=== PATIENT | female | born 1955 | race Caucasian/White ===

== ENCOUNTER 2017-03-05 14:12 | Observation (INO) | payer OTHER ==
--- NOTE | ~2017-03-05 | CR20 ---
[facility] A Service of [facility] & [facility] RADIOLOGY TEXT RESULTS PATIENT: JUDY MIRANDA LOCATION: [facility] 449-01 : 57 UNIT #: [id number] AGE: [address]: Mahamed Spicer MD SEX: F ORDER DR: [id number] [facility] [address] [facility]. [place], [place] [address] [id number] MR#: [id number] Acc #: [id number] NAME: UJDY MIRANDA : 1955 SEX: F STUDY DATE/TIME: 03/05/2017 14:33 UNIT: [facility] ROOM: STUDY DESCRIPTION: CR Ankle Min 3 Views Lt Attending Physician: Odessa Hardwick M.D. Ordering Physician: Odessa Hardwick M.D. Primary Care Physician: No Primary Care Physician MEDICAL IMAGING REPORT This report is preliminary unless electronic signature is present EXAM Left ankle 3 views HISTORY Pain after fall; missed step. FINDINGS There is a comminuted oblique distal fibular fracture extending to the plafond and a mildly to moderately displaced medial malleolar fracture with widening of the mortise medially. There is probably a posterior malleolar fracture, as well. Dictated by... Bashir Mcclain M.D. THIS IS AN ELECTRONICALLY VERIFIED REPORT Bashir Mcclain M.D. at 03/06/2017 3:53 PM TEV/amelie TD: 03/05/2017 16:12 JOB #: [id number] MEDICAL IMAGING REPORT Page 1 of 1 COPY
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
--- NOTE | ~2017-03-05 | OR ---
Unit #: [id number] #: [id number] Patient: NATI MIRANDA [id number] [address] [place], [place] [address] [id number] I MR#: [id number] NAME: NATI MIRANDA ROOM: [facility] Date of Procedure: 03/06/2017 Admission Date: 03/05/2017 Surgeon: Damon Cho M.D. : 1955 Attending Physician: Mahamed Spicer M.D. Primary Care Physician: Primary Care Physician No OPERATIVE REPORT PREOPERATIVE DIAGNOSIS Left trimalleolar ankle fracture. POSTOPERATIVE DIAGNOSIS Left trimalleolar ankle fracture. PROCEDURE PERFORMED Open reduction internal fixation, left trimalleolar ankle fracture. SITE DAMAGE PREVENTION TECHNICIAN Domingo Vizcarra CFA. ANESTHESIA General with LMA. COMPLICATIONS None. SPECIMENS None. DRAINS None. SURGICAL IMPLANTS 1. Yovana 6-hole distal fibular locking plate. 2. Yovana two 4.0 mm cannulated partially threaded screws. INDICATION FOR PROCEDURE Nati is a pleasant 61-year-old female who had twisted her left ankle after missing a step resulting in a trimalleolar ankle fracture. She was brought to the emergency room, where x-rays were taken. She was placed into a splint and admitted to Orthopedics. It was felt that she would benefit from ORIF of the fracture. She elected to proceed with surgery. Risks, benefits, and alternatives discussed. Risks include, but are not limited to, infection, bleeding, nerve injury, blood clots, risks associated with anesthesia, need for further surgery, and possibly . DESCRIPTION OF PROCEDURE On 03/06/2017, the patient was seen in preoperative holding area where her surgical site was marked. Preoperative antibiotics were received. H and P and consent updated. Preoperative block had been performed. She was Unit #: [id number] #: [id number] Patient: NATI MIRANDA taken to the operating room and provided general anesthesia. The left lower extremity was prepped and draped in typical sterile fashion. Time-out performed confirming the correct surgical site and procedure. At this point, Esmarch was used to exsanguinate the leg and tourniquet inflated to 250 mmHg. Lateral incision was then made directly over the fibula. Incision was taken down through the skin and subcutaneous tissues. There was significant comminution of the fracture. It was segmental. The fragments were reduced and a 2.7 mm screw was placed from anterior to posterior using lag technique. A neutralizing 6-hole plate was placed. It was secured distally followed by 3 proximal screws, two of which were bicortical and the other was a locking screw. Once this was complete, focus was placed on the medial malleolus. Incision was made over the medial malleolus. Fracture site identified. Periosteum was folded into the fracture site and excised. Wound was thoroughly irrigated including the fracture site. The medial malleolus was then reduced with 2 K-wires. It was measured, reamed over, followed by placement of two-third threaded cannulated screws. This had excellent fixation and compression across the fracture. The focus was placed back on the lateral malleolus. There had been interval shifting of the fracture site. The plate was taken back off and the lag screw was converted to a larger bicortical screw to hold the fixation. The plate was bent and slightly adjusted and replaced back on the tibia to neutralize the fracture. The fracture was well reduced at this point and distal locking screws were placed followed by 4 screws bicortically proximally. At this point, final AP, oblique, lateral view images were taken confirming appropriate reduction of fracture and placement of hardware. Negative external rotation stress test noted. Tourniquet released at just over an hour. Wounds were thoroughly irrigated. Hemostasis was achieved. Deep tissue closed with 0 Vicryl suture followed by 2-0 Vicryl for subcutaneous tissues and darek for skin. Xeroform, 4x4s, ABD pad, cast padding, and a well-padded posterior splint were placed. The patient was subsequently awakened from general anesthesia in stable condition and taken to PACU postoperatively. POSTOPERATIVE PLAN The patient will be returned to her hospital room. She will be on nonweightbearing physical therapy. She will have Lovenox while in the hospital be transpositioned to aspirin full dose for 2 weeks for DVT prophylaxis. No complications encountered during the surgical procedure. Dictated by... Damon Cho M.D. SNEHA/bell TD: 03/07/2017 13:07 JOB #: [id number] OPERATIVE REPORT Page 1 of 1 X X PROCEDURE OPERATIVE NOTE
--- NOTE | ~2017-03-05 | CR17 ---
[facility] A Service of [facility] & [facility] RADIOLOGY TEXT RESULTS PATIENT: JUDY MIRANDA LOCATION: [facility] 449-01 : 56 UNIT #: [id number] AGE: [address]: Mahamed Spicer MD SEX: F ORDER DR: [id number] [facility] [address] [facility]. [place], [place] [address] [id number] I MR#: [id number] Acc #: [id number] NAME: JUDY MIRANDA : 1955 SEX: F STUDY DATE/TIME: 03/06/2017 13:02 UNIT: [facility] ROOM: [facility] STUDY DESCRIPTION: CR Ankle 2 Views Lt Attending Physician: Mahamed Spicer M.D. Ordering Physician: Damon Cho M.D. Primary Care Physician: No Primary Care Physician MEDICAL IMAGING REPORT This report is preliminary unless electronic signature is present EXAM Left ankle series. HISTORY Open reduction internal fixation, left ankle. FINDINGS Fluoroscopy time 19 seconds. 5 fluoroscopic spot images. 5 fluoroscopic spot images of the left ankle are presented. Images demonstrate patient undergoing open reduction internal fixation of left lateral and medial malleolar fractures. Please see operative report for full procedural details. Dictated by... Domingo Padron M.D. THIS IS AN ELECTRONICALLY VERIFIED REPORT Domingo Padron M.D. at 03/11/2017 10:59 AM MOHINDER/kayla TD: 03/06/2017 16:51 JOB #: [id number] MEDICAL IMAGING REPORT Page 1 of 1 COPY
--- NOTE | ~2017-03-05 | EKG ---
PATIENT: JUDY MIRANDA UNIT #: [id number] Ventricular Rate: 83 BPM Atrial Rate: 83 BPM P-R Interval: 160 ms QRS Duration: 74 ms Q-T Interval: 398 ms QTC Calculation(Bezet): 467 ms P [place]: 61 degrees Calculated R [place]: -21 degrees Calculated T [place]: 11 degrees Diagnosis Line: Normal sinus rhythm Diagnosis Line: Voltage criteria for left ventricular hypertrophy Diagnosis Line: Nonspecific ST abnormality Diagnosis Line: Abnormal ECG Diagnosis Line: No previous ECGs available Diagnosis Line: Confirmed by PROSPER OSEGUERA MD ([id number]) on 03/05/2017 Diagnosis Line: 10:47:17 PM INTERPRETING MD: ANA ROSA CARNES
--- NOTE | ~2017-03-05 | CR72 ---
[facility] A Service of [facility] & [facility] RADIOLOGY TEXT RESULTS PATIENT: JUDY MIRANDA LOCATION: [place] [address]- : [birth year] UNIT #: [id number] AGE: [address]: Mahamed Spicer MD SEX: F ORDER DR: [id number] [facility] [address] [facility] [place], [place] [address] [id number] I MR#: [id number] #: [id number] NAME: JUDY MIRANDA : 1955 SEX: F STUDY DATE/TIME: 03/05/2017 16:18 UNIT: [facility] ROOM: [facility] STUDY DESCRIPTION: CR Chest Single View Portable Attending Physician: Mahamed Spicer M.D. Ordering Physician: Mahamed Spicer M.D. Primary Care Physician: Primary Care Physician No MEDICAL IMAGING REPORT This report is preliminary unless electronic signature is present EXAM Portable chest HISTORY Fall down steps 03/05/2017, with shortness of air with activity. COMPARISON 03/05/2017 FINDINGS A portable view of the chest was obtained. The heart size and vascularity are normal and the lungs are clear. There is a sternotomy wire present and there is a metal plate in the lower cervical spine. IMPRESSION No active disease. Dictated by... Luís Aguilar M.D. THIS IS AN ELECTRONICALLY VERIFIED REPORT Luís Aguilar M.D. at 03/06/2017 7:18 AM FEL/to TD: 03/05/2017 19:00 JOB #: [id number] MEDICAL IMAGING REPORT Page 1 of 1 COPY
--- NOTE | ~2017-03-05 | DS ---
Unit #: [id number] #: [id number] Patient: JUDY MIRANDA [id number] [address] [address] [id number] I MR#: [id number] NAME: JUDY MIRANDA ROOM: [facility] Age: 61 Sex: F Admission Date: 03/05/2017 : 1955 Discharge Date: 03/07/2017 Attending Physician: Mahamed Spicer M.D. Primary Care Physician: Shruthi Primary Care Physician DISCHARGE SUMMARY DISCHARGE DIAGNOSES Left ankle trimalleolar fracture, status post ORIF. DISCHARGE MEDICATIONS 1. The patient will restart all of her home medications. 2. She will switch aspirin 81 mg to aspirin 325 mg p.o. daily times 2 weeks. 3. She will also be discharged on pain medication, [place] 10/325 mg 1-2 tablets p.o. q.4 h. p.r.n. pain. HOSPITAL COURSE The patient was admitted on 03/05/2017 with a left ankle injury. She was taken to surgery on 03/06/2017. She did well postoperatively. Labs and vital signs are stable on postoperative day one and she is felt to be stable for discharge home. DISPOSITION Home. DISCHARGE INSTRUCTIONS 1. The patient is nonweightbearing on her left lower extremity. 2. She will keep the splint clean and dry. 3. She will ice and elevate. 4. She will follow up in the office in two weeks. 5. She will take aspirin 325 mg p.o. daily for 2 weeks for DVT prophylaxis. Dictated by... Damon Cho M.D. SNEHA/chel TD: 03/07/2017 08:42 JOB #: [id number] Unit #: [id number] #: [id number] Patient: JUDY MIRANDA DISCHARGE SUMMARY Page 1 of 1 X X DISCHARGE SUMMARY
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
--- NOTE | ~2017-03-05 | HP ---
Unit #: [id number] #: [id number] Patient: JUDY MIRANDA [id number] [address] [place], [place] [address] [id number] MR#: [id number] NAME: JUDY MIRANDA ROOM: Age: 61 Sex: F Admission Date: 03/05/2017 : 1955 Attending Physician: Odessa Hardwick M.D. HISTORY AND PHYSICAL ADMITTING DIAGNOSIS Left ankle fracture. HISTORY OF PRESENT ILLNESS Miss Miranda is a 61-year-old female who fell after missing a step near [facility]. She went to the watch store to replace a watch battery, missed a step, and landed on the left lower extremity. She rolled her left ankle. She admits to pain and swelling of the left ankle. The pain is localized to the medial and lateral malleolus. She denies any numbness or tingling. She is unable to weight bear at this time. PAST MEDICAL HISTORY 1. Diabetes. 2. Hypertension. 3. Gastroesophageal reflux disease. 4. Hyperlipidemia. 5. Allergic rhinitis. PAST SURGICAL HISTORY 1. Hysterectomy. 2. Cervical spine surgery. 3. Bladder surgery. ALLERGIES Feldene. SOCIAL HISTORY Patient denies any smoking, alcohol, or illicit drug use. She lives at home with her . FAMILY HISTORY Ins[employer]icant. REVIEW OF SYSTEMS Ten organ systems were reviewed. Patient denies any blurry vision, congestion, sore throat, shortness of breath, chest pain, abdominal pain, urinary incontinence, numbness, tingling, skin ulcers or lesions, anxiety, or depression. Positive for joint pain. PHYSICAL EXAMINATION GENERAL: No acute distress, alert and oriented x3. VITAL SIGNS: Temperature 98.2, pulse 95, respirations 17, and blood pressure 161/70. HEENT: PERRLA. Nonicteric sclerae. Unit #: [id number] #: [id number] Patient: JUDY MIRANDA THORAX: Trachea midline. No thyromegaly. CARDIAC: S1 and S2. No extra sounds. No murmurs. LUNGS: Clear to auscultation. No rales or rhonchi. ABDOMEN: Nondistended, nontender. Positive bowel sounds. GENITOURINARY: Deferred. MUSCULOSKELETAL: No erythema or ecchymosis. Positive edema. She has 2+ dorsalis pedis bilateral pulses. NEUROLOGIC: Cranial nerves II-XII intact. SKIN: Cool and dry. PSYCHIATRIC: Good insight, good judgment. Mood and affect are pleasant. DIAGNOSTIC STUDIES IMAGING: Two views of the left ankle ordered and reviewed in the emergency room and shows a bimalleolar left ankle fracture with mortise displacement. ASSESSMENT Left ankle fracture. PLAN I have discussed the treatment options with the patient. I have recommended a left ankle ORIF to be done by Dr. Cho tomorrow pending medical clearance. The risks and benefits of the procedure were explained, as well as a description of the procedure in its entirety along with any complications. The patient has decided to proceed. Will go ahead and get this scheduled, get the usual preoperative lab work and testing complete, and have the patient medically cleared for surgery. We will have [facility] see the patient for medical clearance and diabetic management. They will also review her admitting med rec. Patient will likely be discharged on Friday pending pain control and physical therapy. Dictated by Eliud SanfordALalo for Brenda Horton/shalonda TD: 03/05/2017 16:15 JOB #: [id number] HISTORY AND PHYSICAL Page 1 of 1 X Mansi Brunson HISTORY AND PHYSICAL
[2017-03-05] MEDS ORDERED: ASPIRIN81 MG PO (15:22)
[2017-03-05] MEDS ORDERED: ACIPHEX20 MG PO (15:22)
[2017-03-05] MEDS ORDERED: LANTUS100 U/ML (15:22)
[2017-03-05] MEDS ORDERED: CALCIUM 500 +1 EAC6 PO (15:23)
[2017-03-05] MEDS ORDERED: JANUVIA100 MG PO (15:23)
[2017-03-05] MEDS ORDERED: LIPITOR PO (15:24)
[2017-03-05] MEDS ORDERED: HYDROCHLOROTHIA25 MG PO (15:24)
[2017-03-05] MEDS ORDERED: ZYRTEC PO (15:24)
[2017-03-05 15:40] LABS: BASOPHIL# 0.1 X10e3 (0-0.3); BASOPHIL% 0.6 % (0-2.5); EOSINOPHIL# 0.2 X10e3 (0-0.7); EOSINOPHIL% 1.4 % (0.0-7.0); HEMATOCRIT 37.3 % (35.0-45.0); HEMOGLOBIN 11.7 gm/dL (12.0-16.0); LYMPHOCYTE# 1.5 X10e3 (1.0-3.5); LYMPHOCYTE% 10.6 % (17.0-45.0); MEAN CORPUSCULAR HEMOGLOBIN 25.2 PG (28-34); MEAN CORPUSCULAR HGB CONC 31.5 g/dL (30-36); MEAN PLATELET VOLUME 8.5 FL (6.5-11.5); MONOCYTE# 0.9 X10e3 (0-1.0); MONOCYTE% 6.6 % (3.0-12.0); NEUTROPHIL# 11.3 X10e3 (1.5-7.1); NEUTROPHIL% 80.8 % (40-75); PLATELET COUNT 403 X10e3 (140-420); RED BLOOD COUNT 4.67 X10e (3.90-5.30); RED CELL DISTRIBUTION WIDTH 15.3 % (11.0-15.5)
[2017-03-05 15:43] LABS: DIFF IND NO
[2017-03-05 15:55] LABS: PROTHROMBIN TIME (PATIENT) 10.5 SECONDS (9.6-11.5)
[2017-03-05 16:02] LABS: BUN/CREATININE RATIO 10.9; CALCIUM SERUM 9.5 mg/dL (8.4-10.2); CREATININE SERUM 1.1 mg/dL (0.6-1.4); GLOM FILT RATE Estimated 54.5 mL/min (>60); POTASSIUM 3.2 mmol/L (3.5-5.1)
[2017-03-06 03:45] LABS: BASOPHIL# 0.1 X10e3 (0-0.3); BASOPHIL% 0.6 % (0-2.5); EOSINOPHIL# 0.3 X10e3 (0-0.7); EOSINOPHIL% 2.7 % (0.0-7.0); HEMATOCRIT 33.5 % (35.0-45.0); HEMOGLOBIN 10.7 gm/dL (12.0-16.0); LYMPHOCYTE# 2.1 X10e3 (1.0-3.5); LYMPHOCYTE% 20.5 % (17.0-45.0); MEAN CELL VOLUME 80.1 FL (83-96); MEAN CORPUSCULAR HEMOGLOBIN 25.5 PG (28-34); MEAN CORPUSCULAR HGB CONC 31.9 g/dL (30-36); MEAN PLATELET VOLUME 8.9 FL (6.5-11.5); MONOCYTE# 1.1 X10e3 (0-1.0); MONOCYTE% 10.9 % (3.0-12.0); NEUTROPHIL# 6.6 X10e3 (1.5-7.1); NEUTROPHIL% 65.3 % (40-75); PLATELET COUNT 342 X10e3 (140-420); RED BLOOD COUNT 4.18 X10e (3.90-5.30); RED CELL DISTRIBUTION WIDTH 15.4 % (11.0-15.5); WHITE BLOOD COUNT 10.2 X10e3 (4.0-10.5)
[2017-03-06 03:48] LABS: DIFF IND NO
[2017-03-06 03:58] LABS: PROTHROMBIN TIME (PATIENT) 10.4 SECONDS (9.6-11.5)
[2017-03-06 04:20] LABS: ALBUMIN SERUM 3.6 g/dL (3.5-5.0); BILIRUBIN,TOTAL 0.8 mg/dL (0.2-2.0); BUN/CREATININE RATIO 11.66; CALCIUM SERUM 8.7 mg/dL (8.4-10.2); CREATININE SERUM 1.2 mg/dL (0.6-1.4); GLOM FILT RATE Estimated 49.1 mL/min (>60); POTASSIUM 3.3 mmol/L (3.5-5.1); PROTEIN TOTAL SERUM 6.3 g/dL (6.0-8.3)
[2017-03-06 10:45] LABS: URINE SOURCE CLEAN CATCH
[2017-03-06 10:50] LABS: URINE BILIRUBIN NEG (NEG); URINE BLOOD NEG (NEG); URINE COLOR YELLOW; URINE GLUCOSE NEG (NEG); URINE KETONE NEG (NEG); URINE LEUKOCYTE ESTERASE NEG (NEG); URINE NITRATE NEG (NEG); URINE PROTEIN NEG (NEG); URINE SPECIFIC GRAVITY 1.019 (1.003-1.035); URINE UROBILINOGEN 0.2 MG/DL (NEG)
[2017-03-06 10:52] LABS: URINE APPEARANCE CLEAR
[2017-03-07 03:17] LABS: BASOPHIL# 0.1 X10e3 (0-0.3); BASOPHIL% 0.5 % (0-2.5); EOSINOPHIL# 0.2 X10e3 (0-0.7); EOSINOPHIL% 1.8 % (0.0-7.0); HEMATOCRIT 31.2 % (35.0-45.0); LYMPHOCYTE# 1.8 X10e3 (1.0-3.5); LYMPHOCYTE% 17.1 % (17.0-45.0); MEAN CELL VOLUME 79.8 FL (83-96); MEAN CORPUSCULAR HEMOGLOBIN 25.6 PG (28-34); MEAN CORPUSCULAR HGB CONC 32.1 g/dL (30-36); MEAN PLATELET VOLUME 8.3 FL (6.5-11.5); MONOCYTE# 1.3 X10e3 (0-1.0); MONOCYTE% 12.8 % (3.0-12.0); NEUTROPHIL% 67.8 % (40-75); PLATELET COUNT 291 X10e3 (140-420); RED BLOOD COUNT 3.91 X10e (3.90-5.30); RED CELL DISTRIBUTION WIDTH 15.5 % (11.0-15.5); WHITE BLOOD COUNT 10.3 X10e3 (4.0-10.5)
[2017-03-07 03:18] LABS: DIFF IND NO
[2017-03-07 03:44] LABS: GLOM FILT RATE Estimated 61.2 mL/min (>60); MAGNESIUM 1.8 mg/dL (1.6-3.0); POTASSIUM 3.7 mmol/L (3.5-5.1)
[2017-03-07] MEDS ORDERED: LORTAB 10-3251 EACH PO (12:24)
[2017-03-07] MEDS ORDERED: ASPIRIN ENTERI325 M1 PO (12:24)
== END 2017-03-07 13:19 | disposition home or self-care (01) | DRG 494 ==
LOC: CED 14:12 → CEDOF 15:10 → C4B 16:39
PROVIDERS: Emergency Medicine; Family Medicine; Internal Medicine Cardiovascular Disease
PROC: 0QSH04Z Reposition Left Tibia with Internal Fixation Device, Open Approach (ICD-10-PCS; principal; 2017-03-05)
DX: S82.852A Displaced trimalleolar fracture of left lower leg, initial encounter for closed fracture (principal); W10.8XXA Fall (on) (from) other stairs and steps, initial encounter; Y93.89 Activity, other specified; Y92.89 Other specified places as the place of occurrence of the external cause; E11.9 Type 2 diabetes mellitus without complications; K21.9 Gastro-esophageal reflux disease without esophagitis; E78.5 Hyperlipidemia, unspecified; I10 Essential (primary) hypertension; Z79.84 Long term (current) use of oral hypoglycemic drugs; Z79.82 Long term (current) use of aspirin; Z79.899 Other long term (current) drug therapy; E83.42 Hypomagnesemia; E66.9 Obesity, unspecified; J30.9 Allergic rhinitis, unspecified; Z83.3 Family history of diabetes mellitus; Z82.49 Family history of ischemic heart disease and other diseases of the circulatory system; Z88.8 Allergy status to other drugs, medicaments and biological substances; Z91.040 Latex allergy status; Z90.710 Acquired absence of both cervix and uterus
CPT/HCPCS: 71010; 73600; 73610; 76001; 80048; 80053; 81003; 82947; 83036; 83735; 84132; 85025; 85610; 87086; 93005; 94760; 94762; 96372; 96374; 96375; 96376; 97116; 97162; 97165; 97530; 97535; 99285; C1713; G0378; J0690; J1650; J1815; J2250; J2270; J2405; J2795; J3010; J3475